=== PATIENT | female | born 1965 | race African-American/Black ===

== ENCOUNTER 2025-02-18 10:58 | Emergency (ER) | payer BC, MEDICAID ==
[~2025-02-18] VITALS: Ht 160 cm; Wt 56.0 kg
[2025-02-18 11:01] VITALS: PULSE 91; RESP 14; O2SAT 99
[2025-02-18 11:06] VITALS: BP 111/78; TEMP 36.9; O2SAT 99
== END 2025-02-18 13:45 | disposition home or self-care (01) ==
LOC: ER 10:58
DX: Z76.0 Encounter for issue of repeat prescription (principal); E78.00 Pure hypercholesterolemia, unspecified; Z96.649 Presence of unspecified artificial hip joint
CPT/HCPCS: 99281

== ENCOUNTER 2025-08-20 11:11 | Emergency (ER) | payer BC, MEDICAID ==
[~2025-08-20] VITALS: Ht 162.6 cm; Wt 98.0 kg
[2025-08-20 11:34] VITALS: O2SAT 100
[2025-08-20] MEDS ORDERED: P50 MT (11:57)
[2025-08-20] MEDS ORDERED: EPIN0.3P3 IM (11:57)
[2025-08-20] MEDS ORDERED: DIPH50CA41 MT (11:57)
[2025-08-20] MEDS ORDERED: FAMO40TA7 MT (11:57)
[2025-08-20] MEDS: PREDNISONE 20MG TABLET PO ONE (12:02)
[2025-08-20] MEDS: DIPHENHYDRAMINE 50MG/ML VIAL IM ONE (12:02)
[2025-08-20 12:37] VITALS: BP 112/75; PULSE 89; RESP 18; TEMP 36.7; O2SAT 100
== END 2025-08-20 12:40 | disposition home or self-care (01) ==
LOC: ER 11:11
DX: T78.40XA Allergy, unspecified, initial encounter (principal); E78.00 Pure hypercholesterolemia, unspecified; M19.90 Unspecified osteoarthritis, unspecified site; Z79.52 Long term (current) use of systemic steroids; Z96.649 Presence of unspecified artificial hip joint
CPT/HCPCS: 99283; 96372; J7512; J1200